=== PATIENT | male | born 1955 | race Caucasian/White ===

== ENCOUNTER 2017-07-19 11:59 | Emergency (ER) | payer BC, SELFPAY ==
[~2017-07-19] VITALS: Ht 177.8 cm; Wt 83.6 kg
[2017-07-19 13:02] LABS: HEMOGLOBIN 16.6 g/dL (13.7-18.0); WHITE BLOOD COUNT 11.6 x10^3/uL (3.4-10)
[2017-07-19 13:13] LABS: ASPARTATE AMINO TRANSFERASE 23 U/L (15-37); BLOOD UREA NITROGEN 10 mg/dL (7-18)
[2017-07-19 13:18] LABS: IS PT STATUS REG ER OR PRE ER? YES
[2017-07-19 14:32] VITALS: BP 191/100
== END 2017-07-19 14:43 | disposition home or self-care (01) ==
LOC: ED 13:41
DX: I10 Essential (primary) hypertension (principal)
CPT/HCPCS: 36415; 80053; 83880; 84484; 85025; 93005; 99285

== ENCOUNTER 2018-06-24 11:18 | Inpatient (IN) | payer OTHER ==
[~2018-06-24] VITALS: Ht 177.8 cm; Wt 85.0 kg
[2018-06-24] MEDS ORDERED: SODIUM CHLORIDE FLUSH 10ML SYR IVF ONE (11:30)
[2018-06-24] MEDS ORDERED: DIPHTHERIA-TETANUS ADULT 0.5ML IM-VACC ONE (11:30)
[2018-06-24] MEDS ORDERED: LORazepam 2 MG/ML, 1ML ONE (11:49)
[2018-06-24 11:54] LABS: MEAN CORPUSCULAR HEMOGLOBIN 34.4 pg (27.5-34.5); MEAN CORPUSCULAR HGB CONC 34.8 g/dL (33.2-36.2); MEAN CORPUSCULAR VOLUME 98.7 fL (81-97); MEAN PLATELET VOLUME 8.4 fL (7.4-10.4); PLATELET COUNT 250 x10^3/uL (130-400); RED BLOOD COUNT 4.55 x10^6/uL (4.38-5.82); RED CELL DISTRIBUTION WIDTH 13.5 % (9.4-14.8)
[2018-06-24 11:57] LABS: CHLORIDE 98 mmol/L (98-107)
[2018-06-24] MEDS ORDERED: LORazepam 2 MG/ML, 1ML IVPush ONE (12:00)
[2018-06-24 12:02] LABS: INTERNATIONAL NORMALIZED RATIO 0.98 (0.93-1.1); PROTHROMBIN TIME 10.4 Seconds (9.6-11.5)
[2018-06-24 12:04] LABS: ALANINE AMINOTRANSFERASE 50 U/L (12-78); ALBUMIN 3.9 g/dL (3.4-5.0); ANION GAP 12 mmol/L (5-15); CALCIUM 8.9 mg/dL (8.5-10.1)
[2018-06-24 12:06] LABS: ALKALINE PHOSPHATASE 100 U/L (45-117); BILIRUBIN,TOTAL 1.1 mg/dL (0.2-1.0); CREATININE 1.44 mg/dL (0.7-1.3)
[2018-06-24] MEDS ORDERED: SODIUM CHLORIDE 0.9% 1,000 ML IV ONE (12:19)
[2018-06-24] MEDS ORDERED: CEFAZOLIN PMX 1GM/50ML 50 ML ONE (12:25)
[2018-06-24] MEDS ORDERED: DIPH,PERTUSS(ACELL),TET VAC/PF 0.5 ML IM-VACC ONE ×2 (12:26→12:30)
[2018-06-24] MEDS: CEFAZOLIN PMX 1GM/50ML 50 ML IVPB ONE ×2 (12:28→12:45)
[2018-06-24 12:36] LABS: BASOPHILS # (AUTO) 0.03 x10^3/uL (0-0.1); BASOPHILS % (AUTO) 0 % (0-1); EOSINOPHILS # (AUTO) 0.17 x10^3/uL (0-0.4); EOSINOPHILS % (AUTO) 1 % (1-7); LYMPHOCYTES # (AUTO) 2.18 x10^3/uL (1-3.4); LYMPHOCYTES % (AUTO) 12 % (22-44); MD SCAN; MONOCYTES # (AUTO) 1.27 x10^3/uL (0.2-0.8); MONOCYTES % (AUTO) 7 % (2-9); NEUTROPHILS # (AUTO) 14.77 x10^3/uL (1.8-6.8); NEUTROPHILS % (AUTO) 80 % (42-75)
[2018-06-24] MEDS ORDERED: LIDOCAINE-MPF 1%, 5ML INFIL ONE (13:00)
[2018-06-24 13:13] LABS: TROPONIN I < 0.015 ng/mL (0.000-0.045)
[2018-06-24] MEDS ORDERED: SODIUM CHLORIDE 0.9% 1,000 ML IV SCH (13:23)
[2018-06-24] MEDS ORDERED: morphine SULFATE 10 MG/ML, 1ML IVPush PRN (13:30)
[2018-06-24] MEDS ORDERED: LIDODERM 5% PATCH TD PRN (13:30)
[2018-06-24] MEDS ORDERED: INSTRUCTION SEE COMMENTS XX ONE (13:30)
[2018-06-24] MEDS ORDERED: BISACODYL 10 MG SUPP PR PRN (13:30)
[2018-06-24] MEDS ORDERED: POLYETHYLENE GLYCOL 17 GM PACKET PO PRN (13:30)
[2018-06-24] MEDS ORDERED: ONDANSETRON 2MG/ML, 2ML IVPush PRN (13:30)
[2018-06-24] MEDS ORDERED: DOCUSATE 100 MG CAPSULE PO PRN (13:30)
[2018-06-24] MEDS ORDERED: LIDOCAINE-MPF 1%, 5ML ONE ×2 (13:31→13:40)
[2018-06-24] MEDS ORDERED: POTASSIUM CHLORIDE 40 MEQ in SODIUM CHLORIDE 0.9% 500 ML IV ONE (14:00)
[2018-06-24] MEDS ORDERED: [UNRECOGNIZED DRUG - OTHER] IV SCH (14:00)
[2018-06-24] MEDS ORDERED: MVI ADULT IV SCH (14:00)
[2018-06-24] MEDS ORDERED: POTASSIUM CHLORIDE IV SCH (14:00)
[2018-06-24] MEDS ORDERED: FOLIC ACID IV SCH (14:00)
[2018-06-24] MEDS ORDERED: THIAMINE IV SCH (14:00)
[2018-06-24] MEDS ORDERED: ONDANSETRON 2MG/ML, 2ML ONE (14:09)
[2018-06-24 14:14] LABS: HEMOGLOBIN A1C 5.9 % (4.2-6.3)
[2018-06-24] MEDS ORDERED: ONDANSETRON 2MG/ML, 2ML IVPush ONE (14:30)
[2018-06-24 16:46] VITALS: BP 119/76
[2018-06-24] MEDS: LACTULOSE 10 GM/15 ML UDC PO SCH (22:39)
[2018-06-25 01:31] LABS: MICROSCOPIC AUTO
[2018-06-25 01:33] LABS: CULTURE INDICATED? NO
[2018-06-25 01:45] LABS: AMPHETAMINE SCREEN, URINE Negative (Negative); BARBITURATE SCREEN, URINE Negative (Negative); BENZODIAZEPINE SCREEN, URINE Negative (Negative); CANNABINOID SCREEN, URINE Positive (Negative); COCAINE SCREEN, URINE Negative (Negative); METHADONE SCREEN, URINE Negative (Negative); OPIATE SCREEN, URINE Negative (Negative)
[2018-06-25 04:44] LABS: CHLORIDE 97 mmol/L (98-107)
[2018-06-25 04:54] LABS: MEAN CORPUSCULAR HEMOGLOBIN 34.2 pg (27.5-34.5); MEAN CORPUSCULAR HGB CONC 34.5 g/dL (33.2-36.2); MEAN CORPUSCULAR VOLUME 99.2 fL (81-97); MEAN PLATELET VOLUME 8.4 fL (7.4-10.4); PLATELET COUNT 235 x10^3/uL (130-400); RED BLOOD COUNT 4.17 x10^6/uL (4.38-5.82)
[2018-06-25 04:58] LABS: ALANINE AMINOTRANSFERASE 48 U/L (12-78); ALBUMIN 3.2 g/dL (3.4-5.0); ALKALINE PHOSPHATASE 82 U/L (45-117); ANION GAP 12 mmol/L (5-15); BILIRUBIN,TOTAL 0.7 mg/dL (0.2-1.0); CALCIUM 8.5 mg/dL (8.5-10.1); CHOL/HDL RATIO 1.9; CHOLESTEROL, TOTAL 190 mg/dL (140-239); CREATININE 0.91 mg/dL (0.7-1.3); HDL CHOL % 52 % (26-37); HDL CHOLESTEROL (DIRECT) 99 mg/dL (40-60); LDL CHOLESTEROL,CALCULATED 83 mg/dL (54-169); LDL/HDL RATIO 0.8 (0.5-3.0); THYROID STIMULATING HORMONE 0.664 mIU/L (0.358-3.740); TOTAL PROTEIN 7.4 g/dL (6.4-8.2); TRIGLYCERIDES 41 mg/dL (50-200); VLDL CHOLESTEROL 8 mg/dL (0-25)
[2018-06-25 05:27] LABS: BASOPHILS % (AUTO) 0 % (0-1); EOSINOPHILS % (AUTO) 0 % (1-7); LYMPHOCYTES % (AUTO) 3 % (22-44); MD SCAN; MONOCYTES # (AUTO) 0.09 x10^3/uL (0.2-0.8); MONOCYTES % (AUTO) 1 % (2-9); NEUTROPHILS # (AUTO) 11.92 x10^3/uL (1.8-6.8); NEUTROPHILS % (AUTO) 96 % (42-75)
[2018-06-25] MEDS ORDERED: HYDROCHLOROTHIAZIDE 12.5 MG CAPSULE PO ONE (08:30)
[2018-06-25] MEDS ORDERED: SODIUM CHLORIDE 3% 500 ML IV SCH ×2 (08:30→23:00)
[2018-06-25 08:56] LABS: ANION GAP 9 mmol/L (5-15); CALCIUM 8.9 mg/dL (8.5-10.1); CHLORIDE 99 mmol/L (98-107); CREATININE 0.92 mg/dL (0.7-1.3)
[2018-06-25] MEDS ORDERED: CEFAZOLIN PMX 2GM/50ML 50 ML IVPB SCH (10:00)
[2018-06-25] MEDS: THIAMINE 100MG TABLET PO SCH (10:20)
[2018-06-25] MEDS: LACTULOSE 10 GM/15 ML UDC PO SCH ×2 (10:20→19:50)
[2018-06-25] MEDS: AMLODIPINE 5 MG TABLET PO SCH ×2 (10:21→19:50)
[2018-06-25] MEDS: IRBESARTAN 300 MG TABLET PO SCH (10:21)
[2018-06-25] MEDS: FOLIC ACID 1 MG TABLET PO SCH (10:21)
[2018-06-25] MEDS: MULTIVITAMINS/MINERALS TABLET PO SCH (10:21)
[2018-06-25 10:23] LABS: TROPONIN I < 0.015 ng/mL (0.000-0.045)
[2018-06-25] MEDS: CEFAZOLIN 2,000 MG in SODIUM CHLORIDE 0.9% 50 ML IVPB SCH ×2 (11:09→18:38)
[2018-06-25 14:47] LABS: ANION GAP 10 mmol/L (5-15); CALCIUM 8.7 mg/dL (8.5-10.1); CHLORIDE 100 mmol/L (98-107); CREATININE 0.91 mg/dL (0.7-1.3)
[2018-06-25] MEDS: ACETAMINOPHEN 325 MG TABLET PO PRN (16:55)
[2018-06-25 20:47] LABS: ANION GAP 13 mmol/L (5-15); CALCIUM 8.9 mg/dL (8.5-10.1); CHLORIDE 102 mmol/L (98-107); CREATININE 0.98 mg/dL (0.7-1.3)
[2018-06-26] MEDS: ACETAMINOPHEN 325 MG TABLET PO PRN ×4 (02:19→22:25)
[2018-06-26 03:15] LABS: MEAN CORPUSCULAR HEMOGLOBIN 33.9 pg (27.5-34.5); MEAN CORPUSCULAR HGB CONC 34.1 g/dL (33.2-36.2); MEAN CORPUSCULAR VOLUME 99.5 fL (81-97); MEAN PLATELET VOLUME 8.4 fL (7.4-10.4); PLATELET COUNT 247 x10^3/uL (130-400); RED BLOOD COUNT 4.24 x10^6/uL (4.38-5.82); RED CELL DISTRIBUTION WIDTH 13.1 % (9.4-14.8)
[2018-06-26 03:25] LABS: ALANINE AMINOTRANSFERASE 43 U/L (12-78); ALBUMIN 3.1 g/dL (3.4-5.0); ANION GAP 11 mmol/L (5-15); CALCIUM 8.6 mg/dL (8.5-10.1); CHLORIDE 104 mmol/L (98-107); CREATININE 0.89 mg/dL (0.7-1.3)
[2018-06-26 03:27] LABS: ALKALINE PHOSPHATASE 78 U/L (45-117); BILIRUBIN,TOTAL 0.6 mg/dL (0.2-1.0); TOTAL PROTEIN 7.2 g/dL (6.4-8.2)
[2018-06-26 03:33] LABS: MD YES
[2018-06-26 03:34] LABS: BAND#(MANUAL) 1.57 x10^3/uL; BANDS%(MANUAL) 8 % (0-7); LYMPHS% (MANUAL) 1 % (22-44); MONOS% (MANUAL) 1 % (2-9); SEG#(MANUAL) 17.64 x10^3/uL (1.8-6.8); SEGS% (MANUAL) 90 % (42-75)
[2018-06-26 03:35] LABS: <PLATELET ESTIMATE> ADEQUATE; <PLT MORPHOLOGY> NORMAL PLT MORPH; <RBC MORPHOLOGY> NORMAL
[2018-06-26] MEDS: CEFAZOLIN 2,000 MG in SODIUM CHLORIDE 0.9% 50 ML IVPB SCH ×3 (05:37→19:59)
[2018-06-26] MEDS: MULTIVITAMINS/MINERALS TABLET PO SCH (08:37)
[2018-06-26] MEDS: FOLIC ACID 1 MG TABLET PO SCH (08:37)
[2018-06-26] MEDS: IRBESARTAN 300 MG TABLET PO SCH (08:37)
[2018-06-26] MEDS: AMLODIPINE 5 MG TABLET PO SCH ×2 (08:38→20:24)
[2018-06-26] MEDS: LACTULOSE 10 GM/15 ML UDC PO SCH ×2 (08:38→20:23)
[2018-06-26] MEDS: THIAMINE 100MG TABLET PO SCH (08:38)
[2018-06-26 08:53] LABS: ANION GAP 9 mmol/L (5-15); CALCIUM 8.8 mg/dL (8.5-10.1); CHLORIDE 105 mmol/L (98-107)
[2018-06-26] MEDS: SODIUM CHLORIDE 1 GM TABLET PO SCH ×2 (17:00→20:24)
[2018-06-26 20:12] VITALS: BP 133/80
[2018-06-27 01:42] VITALS: BP 158/91
[2018-06-27 03:23] VITALS: BP 135/87
[2018-06-27] MEDS: CEFAZOLIN 2,000 MG in SODIUM CHLORIDE 0.9% 50 ML IVPB SCH ×2 (03:26→12:08)
[2018-06-27] MEDS: ACETAMINOPHEN 325 MG TABLET PO PRN ×3 (03:26→20:05)
[2018-06-27 04:54] LABS: BASOPHILS # (AUTO) 0.03 x10^3/uL (0-0.1); BASOPHILS % (AUTO) 0 % (0-1); EOSINOPHILS % (AUTO) 0 % (1-7); LYMPHOCYTES # (AUTO) 1.43 x10^3/uL (1-3.4); LYMPHOCYTES % (AUTO) 9 % (22-44); MD NO; MEAN CORPUSCULAR HEMOGLOBIN 34.2 pg (27.5-34.5); MEAN CORPUSCULAR HGB CONC 34.8 g/dL (33.2-36.2); MEAN CORPUSCULAR VOLUME 98.3 fL (81-97); MONOCYTES % (AUTO) 8 % (2-9); NEUTROPHILS # (AUTO) 13.93 x10^3/uL (1.8-6.8); NEUTROPHILS % (AUTO) 83 % (42-75); PLATELET COUNT 254 x10^3/uL (130-400); RED BLOOD COUNT 3.78 x10^6/uL (4.38-5.82)
[2018-06-27 05:02] LABS: CHLORIDE 106 mmol/L (98-107)
[2018-06-27 05:08] LABS: ALANINE AMINOTRANSFERASE 41 U/L (12-78); ALBUMIN 2.9 g/dL (3.4-5.0); ALKALINE PHOSPHATASE 68 U/L (45-117); ANION GAP 8 mmol/L (5-15); BILIRUBIN,TOTAL 0.4 mg/dL (0.2-1.0); CALCIUM 8.3 mg/dL (8.5-10.1); CREATININE 0.93 mg/dL (0.7-1.3); TOTAL PROTEIN 6.2 g/dL (6.4-8.2)
[2018-06-27 07:12] VITALS: BP 148/91
[2018-06-27] MEDS: AMLODIPINE 5 MG TABLET PO SCH ×2 (08:33→20:05)
[2018-06-27] MEDS: FOLIC ACID 1 MG TABLET PO SCH (08:33)
[2018-06-27] MEDS: LACTULOSE 10 GM/15 ML UDC PO SCH ×2 (08:33→20:05)
[2018-06-27] MEDS: IRBESARTAN 300 MG TABLET PO SCH (08:33)
[2018-06-27] MEDS: SODIUM CHLORIDE 1 GM TABLET PO SCH ×3 (08:33→20:05)
[2018-06-27] MEDS: MULTIVITAMINS/MINERALS TABLET PO SCH (08:33)
[2018-06-27] MEDS: THIAMINE 100MG TABLET PO SCH (08:33)
[2018-06-27 12:28] VITALS: BP 135/87
[2018-06-27] MEDS ORDERED: LIDOCAINE/PF 1%, 30ML ONE (13:28)
[2018-06-27] MEDS ORDERED: LIDOCAINE 2% 100MG/5ML SYRINGE ONE (13:29)
[2018-06-27] MEDS ORDERED: LIDOCAINE-MPF 1%, 5ML ONE (13:30)
[2018-06-27] MEDS: CEPHALEXIN 500 MG CAPSULE PO SCH (20:04)
[2018-06-27 20:18] VITALS: BP 121/78
[2018-06-28 00:20] VITALS: BP 148/89
[2018-06-28] MEDS: CEPHALEXIN 500 MG CAPSULE PO SCH ×2 (04:43→12:03)
[2018-06-28] MEDS: ACETAMINOPHEN 325 MG TABLET PO PRN ×2 (04:43→09:13)
[2018-06-28 07:56] VITALS: BP 151/97
[2018-06-28 09:00] LABS: BASOPHILS # (AUTO) 0.08 x10^3/uL (0-0.1); BASOPHILS % (AUTO) 1 % (0-1); EOSINOPHILS # (AUTO) 0.02 x10^3/uL (0-0.4); EOSINOPHILS % (AUTO) 0 % (1-7); LYMPHOCYTES # (AUTO) 1.99 x10^3/uL (1-3.4); LYMPHOCYTES % (AUTO) 17 % (22-44); MD NO; MEAN CORPUSCULAR HEMOGLOBIN 33.2 pg (27.5-34.5); MEAN CORPUSCULAR HGB CONC 33.8 g/dL (33.2-36.2); MEAN CORPUSCULAR VOLUME 98.2 fL (81-97); MEAN PLATELET VOLUME 7.4 fL (7.4-10.4); MONOCYTES # (AUTO) 0.82 x10^3/uL (0.2-0.8); MONOCYTES % (AUTO) 7 % (2-9); NEUTROPHILS # (AUTO) 9.09 x10^3/uL (1.8-6.8); NEUTROPHILS % (AUTO) 76 % (42-75); PLATELET COUNT 341 x10^3/uL (130-400); RED CELL DISTRIBUTION WIDTH 13.4 % (9.4-14.8)
[2018-06-28] MEDS: AMLODIPINE 5 MG TABLET PO SCH (09:14)
[2018-06-28] MEDS: MULTIVITAMINS/MINERALS TABLET PO SCH (09:14)
[2018-06-28] MEDS: IRBESARTAN 300 MG TABLET PO SCH (09:14)
[2018-06-28] MEDS: SODIUM CHLORIDE 1 GM TABLET PO SCH (09:14)
[2018-06-28] MEDS: LACTULOSE 10 GM/15 ML UDC PO SCH (09:14)
[2018-06-28] MEDS: THIAMINE 100MG TABLET PO SCH (09:14)
[2018-06-28] MEDS: FOLIC ACID 1 MG TABLET PO SCH (09:14)
[2018-06-28] MEDS ORDERED: AMLO5TAB7 PO (11:39)
[2018-06-28] MEDS ORDERED: IRBE300T40 PO (11:39)
[2018-06-28] MEDS ORDERED: CEPH-376 PO (11:39)
== END 2018-06-28 13:45 | disposition home or self-care (01) | DRG 260 ==
LOC: ED 13:01 → EDIP 13:02 → ED 13:59 → CCU 14:45 → 5SO 06-26 18:30 → DCLOUNGE 06-28 13:35
PROVIDERS: ADMIT Hospitalist; ATTEND Hospitalist
PROC: 0JH602Z Insertion of Monitoring Device into Chest Subcutaneous Tissue and Fascia, Open Approach (ICD-10-PCS; principal; 2018-06-24)
DX: R55 Syncope and collapse (principal); S06.5X0A Traumatic subdural hemorrhage without loss of consciousness, initial encounter; S06.6X0A Traumatic subarachnoid hemorrhage without loss of consciousness, initial encounter; E87.1 Hypo-osmolality and hyponatremia; G93.40 Encephalopathy, unspecified; N17.9 Acute kidney failure, unspecified; S02.40EA Zygomatic fracture, right side, initial encounter for closed fracture; S02.19XA Other fracture of base of skull, initial encounter for closed fracture; S02.81XA Fracture of other specified skull and facial bones, right side, initial encounter for closed fracture; S06.2X9A Diffuse traumatic brain injury with loss of consciousness of unspecified duration, initial encounter; S02.40CA Maxillary fracture, right side, initial encounter for closed fracture; D72.829 Elevated white blood cell count, unspecified; D75.89 Other specified diseases of blood and blood-forming organs; E87.6 Hypokalemia; G90.9 Disorder of the autonomic nervous system, unspecified; G93.89 Other specified disorders of brain; H05.20 Unspecified exophthalmos; I10 Essential (primary) hypertension; M48.02 Spinal stenosis, cervical region; S42.001A Fracture of unspecified part of right clavicle, initial encounter for closed fracture; W18.39XA Other fall on same level, initial encounter; S01.111A Laceration without foreign body of right eyelid and periocular area, initial encounter; S63.281A Dislocation of proximal interphalangeal joint of left index finger, initial encounter; W01.0XXA Fall on same level from slipping, tripping and stumbling without subsequent striking against object, initial encounter; Y93.89 Activity, other specified; Y92.89 Other specified places as the place of occurrence of the external cause; Z87.891 Personal history of nicotine dependence; Y99.8 Other external cause status; Z23 Encounter for immunization
CPT/HCPCS: 33282; 36415; 73030; 73120; 73140; 99285; J7042; 70450; 70486; 71045; 72125; 80048; 80053; 80061; 80307; 81001; 83036; 83605; 83735; 84100; 84443; 84484; 85025; 85610; 87040; 87081; 90471; 90715; 93005; 93306; 93880; 96365; 96375; C1764; G0378; J0690; J2405; J2930; J3411; J3480; J3490; J2060; J7040